=== PATIENT | male | born 1970 | race Two or more races ===

== ENCOUNTER 2020-09-27 09:28 | Outpatient (CLI) | payer OTHER | END 2020-09-27 09:40 | disposition home or self-care (01) | LOC: RX STUDY 09:28 | PROVIDERS: ATTEND Colon & Rectal Surgery | DX: K58.0 Irritable bowel syndrome with diarrhea (principal) ==

== ENCOUNTER 2021-04-21 10:15 | Inpatient (IN) | payer OTHER ==
[~2021-04-21] VITALS: Ht 165.1 cm; Wt 63.5 kg
[2021-04-26] MEDS ORDERED: CENTRUM ADULTS1 EACH (15:01)
[2021-04-26] MEDS ORDERED: VITAMIN C100 MG (15:01)
== END 2021-04-28 19:11 | disposition home or self-care (01) | DRG 331 ==
LOC: SURH 04-26 10:15 → O/R 04-26 12:00 → SURH 04-26 15:00
PROVIDERS: ADMIT Colon & Rectal Surgery; ATTEND Colon & Rectal Surgery
PROC: 0DBP4ZZ Excision of Rectum, Percutaneous Endoscopic Approach (ICD-10-PCS; 2021-04-26)
PROC: 0DTN4ZZ Resection of Sigmoid Colon, Percutaneous Endoscopic Approach (ICD-10-PCS; principal; 2021-04-26 15:00)
DX: K57.32 Diverticulitis of large intestine without perforation or abscess without bleeding (principal); K58.0 Irritable bowel syndrome with diarrhea